=== PATIENT | female | born 1960 | race Caucasian/White ===

== ENCOUNTER → 2017-01-05 | Outpatient (CLI) | payer MEDICARE, MEDICAID ==
[~2017-01-05] MED LIST: ADVIL200 MG PO; ALDACTONE25 MG PO; AMBIEN10 MG PO; ASPIRIN LO-DOSE81 MG PO; ASPIRIN325 MG PO; BACTRIM DS1 TAB PO; CITRACAL+D(315M1 TAB PO; CRESTOR20 MG PO; CYMBALTA60 MG PO; LASIX40 MG PO; LEVOTHROID (S137 MCG PO; MIRALAX17 GM PO; NEURONTIN300 MG PO; NORCO 5-325 TA1 EACH PO; NORVASC10 MG PO; NOVOLOG100 UNIT/1 SUB-Q; PERCOCET 5-3251 EACH PO; PRILOSEC20 MG PO; PROLIA60 MG/ML SUB-Q; THERA-VITE W/ B1 TAB PO; ZESTRIL40 MG PO; ZOCOR40 MG PO
== END ==
LOC: LGSMG 12:59
DX: D64.9 Anemia, unspecified (principal); N18.4 Chronic kidney disease, stage 4 (severe); Z00.00 Encounter for general adult medical examination without abnormal findings; E78.5 Hyperlipidemia, unspecified; I10 Essential (primary) hypertension; I12.9 Hypertensive chronic kidney disease with stage 1 through stage 4 chronic kidney disease, or unspecified chronic kidney disease; E10.649 Type 1 diabetes mellitus with hypoglycemia without coma; E10.65 Type 1 diabetes mellitus with hyperglycemia

== ENCOUNTER → 2017-02-27 | Outpatient (CLI) | payer MEDICARE, MEDICAID | END | disposition disaster alternative care site (69) | LOC: GRAD 11:09 | DX: E11.621 Type 2 diabetes mellitus with foot ulcer (principal); M79.89 Other specified soft tissue disorders; R60.0 Localized edema ==

== ENCOUNTER → 2017-03-02 | Day surgery (SDC) | payer MEDICARE, MEDICAID ==
[~2017-03-02] VITALS: Ht 170.2 cm; Wt 102.8 kg
--- NOTE | ~2017-03-02 | OR ---
PATIENT'S NAME: CHRIS CAZARES [facility] AGE: 56 Y [address] ROOM: [place] [address] [place] [facility] [place]: 03/02/2017 OR/Procedure Report DISCHARGE DATE: FAMILY PHYSICIAN: Chicho Mcdaniel MD ATTENDING PHYSICIAN: BRANDT LIN SURGEON: Brandt Lin MD COORDINATOR OF ONLINE PROGRAMS: None. DATE OF PROCEDURE: 03/02/2017 PREOPERATIVE DIAGNOSES: 1. Right gastrocnemius equinus/shortened Achilles tendon. 2. 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 POSTOPERATIVE DIAGNOSES: 1. Right gastrocnemius equinus/shortened Achilles tendon. 2. 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 PROCEDURES PERFORMED: 1. Right gastrocnemius recession procedure. 2. Irrigation and debridement of right stage IV diabetic pressure ulcer measuring 5 cm x 5 cm x 1 cm. Debridement included skin, subcutaneous tissue, and bone. 3. Use of intraoperative fluoroscopy, less than one hour. ANESTHESIA: General endotracheal anesthesia. FLUIDS: See anesthesia report. ESTIMATED BLOOD LOSS: Minimal. TOURNIQUET: Right proximal thigh, though was not used. SPECIMENS: Right fourth toe cultures. COMPLICATIONS: None. DISPOSITION: Stable, in PACU. COUNTS: All counts were correct. INDICATIONS: Ms. Cazares is a pleasant, 56-year-old female who underwent the noted procedures above. The risks, benefits, and alternatives to pursuing surgical intervention were discussed with the patient in detail. The patient elected to proceed with surgery. Anesthesia was consulted for their perioperative evaluation of the patient. I marked the right lower extremity, PATIENT'S NAME: CHRIS CAZARES [facility] AGE: 56 Y [address] ROOM: [place] [address] [place] [facility] [place]: 03/02/2017 OR/Procedure Report DISCHARGE DATE: FAMILY PHYSICIAN: Chicho Mcdaniel MD ATTENDING PHYSICIAN: BRANDT LIN indicating the correct surgical site. DESCRIPTION OF PROCEDURE: The patient was brought from the holding area to the operating room. A time-out was performed. General endotracheal anesthesia was administered. Ancef antibiotic was administered for perioperative prophylaxis. The right lower extremity was then prepped and draped in a sterile fashion. I turned my attention to the right leg. Use of a tourniquet was deferred. I began with a medial incision at the medial aspect of the proximal leg. The incision longitudinally was made with a 15 blade knife through skin and subcutaneous tissue down to fascia. I identified the medial fascia of the leg. I identified the gastrocnemius aponeurosis. Notably, there had been previous surgery done on this leg from some venous grafting by a vascular surgeon. I identified the gastrocnemius aponeurosis. I introduced a speculum and subsequently performed a gastrocnemius recession. The wound was then copiously irrigated and closed in layers. Menno were used to approximate the skin. I was able to actively dorsiflex the ankle and achieve good diastasis and improved dorsiflexion after the gastrocnemius recession procedure. I then turned my attention to the right fourth toe. Notably, there was swelling, cellulitis and purulent discharge coming from the tip of the toe. Using a 15 blade knife, I performed a debridement of the tip of the toe including the ulcer through skin and subcutaneous tissue down to and including bone. A rongeur and curettes were used as well. Cultures and specimen of the toe were sent. I debrided it back to a stable base. The size of this ulcer was approximately 5 cm x 5 cm x 1 cm in depth. After it was copiously irrigated, it was dressed with Xeroform, followed by 4x4, Webril, and David bandage up the leg to provide a compressive dressing. I introduced intraoperative fluoroscopy. I identified the tip of the toe at the level of the distal phalanx and introduced a curette, indicating that I was at the site where the ulcer communicated with the bone. These fluoroscopic images were saved. The patient was then transferred from the operating room table onto the stretcher and extubated. She was brought to the recovery room in stable condition. There were no intraoperative complications noted. IMPRESSION: The patient is status post the noted procedures above. PATIENT'S NAME: CHRIS CAZARES [facility] AGE: 56 Y [address] ROOM: [place], [place] [address] [place] [facility] [place]: 03/02/2017 OR/Procedure Report DISCHARGE DATE: FAMILY PHYSICIAN: Chicho Mcdaniel MD ATTENDING PHYSICIAN: BRANDT LIN PLAN: The patient will be heel weightbearing on the right lower extremity. She will be encouraged to rest, ice, and elevate the extremity going forward. She will be encouraged to stretch her ankle out as well. She will keep her dressings in place postoperatively. She will be sent home on Percocet for pain control, aspirin for DVT prophylaxis, and Bactrim antibiotic for prophylaxis. I would like to see her back in my office in one week for repeat clinical evaluation. MD KAROLYN ELLIOTT/nani /[id number] d: 03/02/17 1439 t: 03/07/17 1257, OPERATIVE SUMMARY
== END | disposition disaster alternative care site (69) ==
LOC: GPOC 03-01 17:00 → GSDC 07:33
PROC: 0L8N0ZZ Division of Right Lower Leg Tendon, Open Approach (ICD-10-PCS; principal; 2017-03-02)
PROC: 0QBQ0ZZ Excision of Right Toe Phalanx, Open Approach (ICD-10-PCS; 2017-03-02)
DX: M21.6X1 Other acquired deformities of right foot (principal); E10.621 Type 1 diabetes mellitus with foot ulcer; L89.899 Pressure ulcer of other site, unspecified stage; M67.01 Short Achilles tendon (acquired), right ankle; E03.9 Hypothyroidism, unspecified; D64.9 Anemia, unspecified; E10.22 Type 1 diabetes mellitus with diabetic chronic kidney disease; I12.0 Hypertensive chronic kidney disease with stage 5 chronic kidney disease or end stage renal disease; N18.5 Chronic kidney disease, stage 5; K21.9 Gastro-esophageal reflux disease without esophagitis; E83.39 Other disorders of phosphorus metabolism; M81.0 Age-related osteoporosis without current pathological fracture; I73.9 Peripheral vascular disease, unspecified; F32.9 Major depressive disorder, single episode, unspecified; E78.2 Mixed hyperlipidemia; Z87.891 Personal history of nicotine dependence; Z98.41 Cataract extraction status, right eye; Z98.42 Cataract extraction status, left eye; Z98.890 Other specified postprocedural states; Z79.82 Long term (current) use of aspirin; Z79.899 Other long term (current) drug therapy; Z88.8 Allergy status to other drugs, medicaments and biological substances
CPT/HCPCS: J0690; J2001; J2405; J7030

== ENCOUNTER → 2017-03-16 | Outpatient (CLI) | payer MEDICARE, MEDICAID ==
--- NOTE | ~2017-03-16 | ENPV ---
Vascular Lower Extremities DVT Study Procedure Demographics Patient Name CHRIS MCLEOD Date of Study 03/16/2017 K Patient Number [id number] Gender Female Date of 1960 Age 56 Visit Number [id number] Height Accession Number [id number] Weight Room Number BSA BMI Referring [facility] Chicho Saldivar MD Interpreting Angel Rene MD Physician Edgar Quinn Md Physician Physician Ordering Physician Edgar Quinn Md Railway Signalling Engineer Digital Project Manager Toyin Foster [facility] Conclusions Summary No evidence of deep vein thrombosis or superficial thrombophlebitis in the right lower extremity . Procedure Type of Study: Veins:Lower Extremities DVT Study, Lower Extremity Right. Indications for Study:Unilateral edema. Appropriate Use Criteria:9 Patient Status:Routine. Study Location:Vascular Lab. Technical Quality:Adequate visualization. Velocities are measured in cm/s ; Diameters are measured in cm Right Lower Extremities DVT Study Measurements Right 2D and Doppler Measurements + + + + +------+------+ + !Location !Visualized!Compressibility!Thrombosis!Signal!Reflux!Reflux ! ! ! ! ! ! ! !(sec) ! + + + + +------+------+ + !GSV Thigh !Yes !Yes !None !Phasic!No ! ! + + + + +------+------+ + !Common !Yes !Yes !None !Phasic!No ! ! !Femoral ! ! ! ! ! ! ! + + + + +------+------+ + !Prox !Yes !Yes !None !Phasic!No ! ! !Femoral ! ! ! ! ! ! ! + + + + +------+------+ + !Mid Femoral!Yes !Yes !None !Phasic!No ! ! + + + + +------+------+ + !Dist !Yes !Yes !None !Phasic!No ! ! !Femoral ! ! ! ! ! ! ! + + + + +------+------+ + !Popliteal !Yes !Yes !None !Phasic!No ! ! + + + + +------+------+ + !Gastroc !Yes !Yes !None !Phasic!No ! ! + + + + +------+------+ + !PTV !Yes !Yes !None !Phasic!No ! ! + + + + +------+------+ + !Peroneal !Yes !Yes !None !Phasic!No ! ! + + + + +------+------+ + Left Lower Extremities DVT Study Measurements Left 2D and Doppler Measurements + + + + +------+------+ + !Location !Visualized!Compressibility!Thrombosis!Signal!Reflux!Reflux ! ! ! ! ! ! ! !(sec) ! + + + + +------+------+ + !Common !Yes !Yes !None ! ! ! ! !Femoral ! ! ! ! ! ! ! + + + + +------+------+ + Signature dtt: JASMEET STONE dtd: 03/16/17 1249 Physician Self Edit
== END | disposition disaster alternative care site (69) ==
LOC: GCAR 12:32
DX: M79.89 Other specified soft tissue disorders (principal); M79.661 Pain in right lower leg